=== PATIENT | female | born 1955 | race African-American/Black ===

== ENCOUNTER 2019-03-25 21:53 | Emergency (ER) | payer OTHER ==
[~2019-03-25] VITALS: Ht 172.7 cm; Wt 113.4 kg
[2019-03-25] MEDS ORDERED: GLUCOPHAGE1000 MG PO (22:57)
[2019-03-25] MEDS ORDERED: ASA81BEC PO (22:58)
[2019-03-25] MEDS ORDERED: NORVASC10 MG PO (22:58)
[2019-03-25] MEDS ORDERED: SYNTHROID175 MCG PO (22:59)
[2019-03-25] MEDS ORDERED: TOPROL XL100 MG PO (23:00)
[2019-03-25 23:40] LABS: ABSOLUTE NEUTROPHILS 3.3 thou/uL (1.4-8.2); BASOPHILS 1.5 % (0.0-2.0); EOSINOPHILS 2.1 % (0.0-3.0); HEMATOCRIT 40.6 % (37.0-47.0); HEMOGLOBIN 13.5 gm/dL (12.0-15.0); LYMPHOCYTES 30.5 % (24.0-44.0); MCHC 33.2 g/dL (28.0-37.0); MCV 90.6 fL (80.0-100.0); MONOCYTES 8.2 % (1.0-8.0); PLATELET COUNT 200 thou/uL (150-400); POLYS 57.7 % (36.0-66.0); RBC 4.48 mil/uL (4.20-5.00); RDW 14.2 % (10.5-14.5); WBC 5.6 thou/uL (4.0-11.0)
[2019-03-25 23:54] LABS: ANION GAP 9 mmol/L (7-16); APTT 24.8 Seconds (24.5-32.8); BUN 15 mg/dL (7-18); CALCIUM 9.4 mg/dL (8.5-10.1); CHLORIDE 101 mmol/L (98-107); CO2 28 mmol/L (21-32); CREATININE 0.7 mg/dL (0.6-1.0); GLUCOSE 221 mg/dL (74-106); POTASSIUM 3.5 mmol/L (3.5-5.1); PROTIME 10.2 Seconds (9.3-11.4); SODIUM 138 mmol/L (136-145)
[2019-03-26 00:01] LABS: ALBUMIN 3.5 g/dL (3.4-5.0); MAGNESIUM 1.7 mg/dL (1.8-2.4); SGOT 19 U/L (15-37); SGPT 40 U/L (30-65); TOTAL BILIRUBIN 0.4 mg/dL (<0.1-1.0); TOTAL PROTEIN 7.3 g/dL (6.4-8.2); TROPONIN-I <0.06 ng/mL (<0.06)
[2019-03-26] MEDS ORDERED: NAPROSYN500 MG PO (00:40)
[2019-03-26] MEDS ORDERED: TRAMADOL 50 MG50 MG PO (00:40)
[2019-03-26 01:19] VITALS: BP 117/64
--- NOTE | 2019-03-28 11:13 | EKG ---
[address] [address] ELECTROCARDIOGRAM REPORT Name: AMADOU LORENZO Room #: [facility] [id number] Admission: 03/25/19 Attend Phys: Discharge: 03/26/19 Date of : 53 Report #: [id number] THIS REPORT FOR: //name// [facility] ED Test Date: 2019-03-25 Test Time: 22:45:26 Pat Name: AMADOU LORENZO Department: Room: Gender: F [employer] Supervisor: janeth : 1955 Requested By: Rashaun Wiseman Order Number: [id number] MD: Mark Castro Measurements Intervals [place] Rate: 101 P: 29 [place]: 181 QRS: 5 QRSD: 85 T: 31 QT: 341 QTc: 442 Interpretive Statements Sinus tachycardia Left ventricular hypertrophy Anterior ST elevation, probably due to LVH No previous ECG available for comparison Electronically Signed On 03-28-2019 11:13:04 OUT[employer]ARD SYSTEM OPERATOR by Mark Castro [email or web address] <ELECTRONICALLY SIGNED> By: Mark Castro MD 03/28/19 [id number] MD LINDY Gambino
== END 2019-03-26 01:25 | disposition home or self-care (01) ==
LOC: ER 21:53
PROVIDERS: Emergency Medicine
DX: R22.32 Localized swelling, mass and lump, left upper limb (principal); R07.89 Other chest pain; I10 Essential (primary) hypertension; E11.9 Type 2 diabetes mellitus without complications; Z90.13 Acquired absence of bilateral breasts and nipples; Z85.3 Personal history of malignant neoplasm of breast; Z88.8 Allergy status to other drugs, medicaments and biological substances